=== PATIENT | female | born 1945 | race Caucasian/White ===

== ENCOUNTER → 2018-07-10 | Outpatient (CLI) | payer MEDICARE, OTHER | END | disposition home or self-care (01) | LOC: RAH 09:42 | PROVIDERS: ATTEND Internal Medicine | DX: K21.9 Gastro-esophageal reflux disease without esophagitis (principal); K44.9 Diaphragmatic hernia without obstruction or gangrene; K31.89 Other diseases of stomach and duodenum | CPT/HCPCS: 74240 ==

== ENCOUNTER → 2024-09-30 | Outpatient (CLI) | payer OTHER ==
--- NOTE | 2024-09-30 10:23 | HMCIMG ---
FINDINGS: There are no comparison exams. Routine upper GI exam was performed. The patient was given effervescent crystals in order to distend the esophagus and stomach. The patient swallowed barium and multiple images of the esophagus and stomach were obtained in various projections. During swallowing of barium, aspiration of a significant amount of barium was noted into the trachea and down to the level of the main bronchi. Nevertheless, no complications ensued. The esophagus distends normally, without any persistent stricturing or narrowing. There is normal esophageal peristalsis and emptying. The gastroesophageal junction is preserved. There is no evidence of esophagitis. No mucosal abnormality seen. No gastroesophageal reflux was seen. No hiatal hernia was demonstrated. The stomach distends well. No mucosal abnormalities are seen to suggest ulcer or cancer. No gastritis is evident. There is no extravasation. There is no evidence of gastric outlet obstruction. The duodenum is normal in appearance. There is no evidence of inflammatory change to suggest peptic ulcer disease. IMPRESSION: No reflux. No hernia. Aspiration of contrast material, barium. Consider further evaluation with speech pathologist Modified barium swallow.
== END | disposition home or self-care (01) ==
LOC: RAH 07:53
PROVIDERS: ATTEND Internal Medicine Gastroenterology
DX: K22.89 Other specified disease of esophagus (principal); K31.89 Other diseases of stomach and duodenum; R93.3 Abnormal findings on diagnostic imaging of other parts of digestive tract; K44.9 Diaphragmatic hernia without obstruction or gangrene; R49.8 Other voice and resonance disorders; R12 Heartburn
CPT/HCPCS: 74240

== ENCOUNTER → 2024-10-07 | Outpatient (CLI) | payer OTHER ==
--- NOTE | 2024-10-07 14:57 | HMCIMG ---
PA AND LATERAL CHEST RADIOGRAPH INDICATION: Abnormal findings on diagnostic imaging of other parts of digestive tract COMPARISON: 07/12/2015 FINDINGS: Heart size is normal. Mild calcific plaque is present along the aortic arch high. The pulmonary vascularity and rachael appear normal. 1.5 cm right upper lobe nodule, and additional smaller nodular opacity projects over the right midlung, perhaps just artifact from overlap of osseous structures with normal underlying pulmonary vascularity. No significant pleural effusion noted. No pneumothorax detected. IMPRESSION: 1.5 cm right upper lobe nodule. Noncontrast CT imaging of the chest can be obtained for further evaluation.
== END | disposition home or self-care (01) ==
LOC: RAH 11:48
PROVIDERS: ATTEND Internal Medicine Gastroenterology
DX: R91.1 Solitary pulmonary nodule (principal); R93.3 Abnormal findings on diagnostic imaging of other parts of digestive tract
CPT/HCPCS: 71046

== ENCOUNTER → 2024-10-19 | Outpatient (CLI) | payer OTHER ==
--- NOTE | 2024-10-19 14:13 | HMCIMG ---
CT CHEST W/O CONTRAST HISTORY: Loss of voice COMPARISON: None TECHNIQUE: Multiple sequential axial images of the chest were obtained from the thoracic inlet through upper abdomen. Patient was not given contrast through intravenous route. FINDINGS: There are COPD changes. Interstitial fibrosis. There is soft tissue mass adjacent to the aortic arch/aortopulmonary window measuring 2.7 x 2.2 cm suspicious for neoplastic process. There is right mid lung mass peripherally measuring 16 x 17 mm. There are also 2 right apical soft tissue mass measuring 14 mm and 10 mm each. Findings are suspicious for neoplastic process. The nodular infiltrates are also seen. There are extensive blebs formation. Coronary artery calcifications are seen. Tiny pericardial effusion is seen. No evidence of pleural effusion is seen. Small hiatal hernia is seen. There is no evidence of pneumothorax. There are borderline in size mediastinal and hilar lymph nodes. The heart is not enlarged. Degenerative changes of the thoracolumbar spine are present. There is no evidence of adrenal nodule. Gallstone is seen in the contracted gallbladder. IMPRESSION: 1. COPD with interstitial fibrosis. Multiple bilateral lung masses as described above. There is borderline mediastinal adenopathy. CT was performed with one or more following dose reduction techniques: automated exposure control, adjustment of the mA and kv according to patient's size, or use of a iterative reconstruction technique.
== END | disposition home or self-care (01) ==
LOC: RAH 13:16
PROVIDERS: ATTEND Internal Medicine Gastroenterology
DX: J43.9 Emphysema, unspecified (principal); J84.10 Pulmonary fibrosis, unspecified; R91.8 Other nonspecific abnormal finding of lung field; J90 Pleural effusion, not elsewhere classified; I25.10 Atherosclerotic heart disease of native coronary artery without angina pectoris; K44.9 Diaphragmatic hernia without obstruction or gangrene; M47.815 Spondylosis without myelopathy or radiculopathy, thoracolumbar region; K80.21 Calculus of gallbladder without cholecystitis with obstruction; R93.89 Abnormal findings on diagnostic imaging of other specified body structures
CPT/HCPCS: 71250

== ENCOUNTER 2024-11-29 22:42 | Emergency (ER) | payer OTHER ==
[~2024-11-29] VITALS: Ht 162.6 cm; Wt 49.4 kg
[2024-11-29 23:11] VITALS: PULSE 108; RESP 28
--- NOTE | 2024-11-29 23:18 | ERN ---
General Chief Complaint: Shortness of Breath Stated Complaint: C/O SOB Time Seen by MD: 23:17 History of Present Illness Initial Comments 79-year-old female with history of COPD and pulmonary interstitial fibrosis and hypermetabolic lung masses in both right and left lungs with borderline mediastinal adenopathy comes in with increasing work of breathing and hypoxia. She wakes up every morning around 2:00 a.m. with thick mucus plugs that she has to work to expectorate. And today was worse than usual. Other concerns: Patient has dysphagia and barium swallow shows significant aspiration. Early satiety and weight loss Chronic constipation Hyperlipidemia Hypertension Diverticulosis Heartburn Hiatal hernia Gastritis Loss of her voice Allergies: Coded Allergies: iodine (Unverified Allergy, Unknown, 11/29/24) Past Medical History Past Medical History: COPD, GERD, Hypertension, Other Medical History Other: LUNG CA Past Surgical History: Other ROS Dictation Patient is also experiencing anorexia and loss of weight. Constitutional: (-) chills, (-) diaphoresis, (-) fever, (-) malaise, (-) weakness, (-) other documentation EENTM: (-) eye pain, (-) blurred vision, (-) tearing, (-) double vision, (-) ear pain, (-) ear discharge, (-) nose pain, (-) nose congestion, (-) throat pain, (-) Throat swelling, (-) mouth pain, (-) tooth pain, (-) mouth swelling, (-) other documentation Respiratory: (+) cough, (+) short of breath, (+) wheezing Cardiovascular: (-) chest pain, (-) edema, (-) palpitations, (-) syncope, (-) dyspnea on exertion, (-) other documentation Gastrointestinal/Abdominal: (-) nausea, (-) vomiting, (-) diarrhea, (-) abdominal pain, (-) abdominal distention, (-) constipation, (-) rectal bleeding, (-) dark stool/melena, (-) other documentation Musculoskeletal: (-) Neck pain, (-) back pain, (-) Flank Pain, (-) joint pain, (-) joint swelling, (-) muscle pain, (-) muscle stiffness, (-) gout, (-) other documentation Skin: (-) laceration, (-) contusion, (-) abrasion, (-) abscess, (-) rash, (-) change in color, (-) change in hair, (-) change in nails, (-) diaphoresis, (-) dryness, (-) other documentation Neuro: (-) altered mental status, (-) headache, (-) syncope, (-) paralysis, (-) numbness, (-) seizure, (-) pre-existing deficit, (-) tremors, (-) weakness, (-) dizziness, (-) slurred speech, (-) vertigo, (-) other documentation Psych: (-) depression, (-) suicidal ideation, (-) anxiety, (-) emotional problems, (-) auditory hallucinations, (-) visual hallucinations Physical Exam General Appearance: (+) moderate distress Orientation: (+) alert, (+) oriented x 3 Head/Face Trauma: No Eye: bilateral eye normal inspection, bilateral eye PERRL, bilateral eye EOMI Ear, Nose, Throat: (+) hearing grossly normal, (+) moist mucous membraine, (+) normal pharynx Neck: (+) normal inspection, (+) supple, (+) full range of motion, (+) no JVD Respiratory: (+) chest non-tender, (+) lungs clear, (+) retractions Respiratory Comment Patient definitely using accessory muscles to breathe auscultation shows air movement and no wheezing Heart: (+) regular, (+) no gallop Vascular: (+) no edema, (+) normal peripheral pulse Gastrointestinal: (+) soft, (+) non-tender, (+) bowel sound present Results Laboratory and Microbiology Lab and Micro Result Laboratory Tests Test 11/30/24 01:09 White Blood Count 12.9 K/uL (4.8-10.8) H Red Blood Count 4.70 MIL/uL (4.00-5.50) Hemoglobin 13.7 g/dL (12.0-16.0) Hematocrit 42.6 % (36-48) Mean Corpuscular Volume 90.6 fL (79-99) Mean Corpuscular Hemoglobin 29.1 pg (27.0-33.0) Mean Corpuscular Hemoglobin Concent 32.2 g/dL (32.0-36.0) Red Cell Distribution Width 14.4 % (11.0-15.5) Platelet Count 363 K/uL (130-400) Mean Platelet Volume 11.7 fL (7.5-10.5) H Immature Granulocyte % (Auto) 0.5 % (0-1) Neutrophils (%) (Auto) 71.5 % (40.0-77.0) Lymphocytes (%) (Auto) 15.5 % (21.0-51.0) L Monocytes (%) (Auto) 11.1 % (3.0-13.0) Eosinophils (%) (Auto) 0.5 % (0.0-8.0) Basophils (%) (Auto) 0.9 % (0.0-5.0) Neutrophils # (Auto) 9.2 K/uL (1.8-7.7) H Lymphocytes # (Auto) 2.0 K/uL (1.0-4.8) Monocytes # (Auto) 1.4 K/uL (0.1-1.0) H Eosinophils # (Auto) 0.06 K/uL (0.00-0.70) Basophils # (Auto) 0.12 K/uL (0.00-0.20) Absolute Immature Granulocyte (auto 0.06 K/uL (0-1) Nucleated Red Blood Cells 0.0 % (0.0-0.19) Sodium Level 142 mmol/L (136-145) Potassium Level 2.7 mmol/L (3.5-5.1) *L Chloride Level 99 mmol/L (101-111) L Carbon Dioxide Level 33 mmol/L (21-32) H Blood Urea Nitrogen 12 mg/dL (7-18) Creatinine 0.6 mg/dL (0.5-1.0) Glomerular Filtration Rate Calc 91 mL/min (>90) Random Glucose 109 mg/dL (70-105) H Total Calcium 9.7 mg/dL (8.5-10.1) Iron Level 35 mcg/dL (50-170) L Total Iron Binding Capacity 336 mcg/dL (250-450) Percent Iron Saturation 10.4 % (22-44) L Total Bilirubin 0.6 mg/dL (0.2-1.0) Aspartate Amino Transf (AST/SGOT) 36 U/L (10-37) Alanine Aminotransferase (ALT/SGPT) 15 U/L (12-78) Alkaline Phosphatase 59 U/L (50-136) Total Protein 7.2 g/dL (6.0-8.3) Albumin 3.3 g/dL (3.5-5.0) L MDM Patient is experiencing exacerbation of her COPD. She is also losing weight from most likely lung cancer. Currently she only uses albuterol nebulizers in her home and she is finding them inadequate. I will give her IV steroid bolus and we will give her another nebulizer with steroids. She has already had multiple CT scans and chest x-rays and PET scans. I will get a chest x-ray but I do not feel the need for a CT scan right now. Patient may have a further complication of aspiration pneumonia. I will get a CBC and a chemistry panel as well. Chemistry panel showed a potassium of 2.6 so I am giving the patient small doses of oral potassium. The chest x-ray does not show any aspiration it does show a consolidation in the left upper lobe that this was present on a CT scan from a month ago and it is a mass not a pneumonia. Her CBC is also normal except for a slight elevation of her WBCs. Currently the patient is breathing more comfortably. We will give the patient one more nebulizer with steroids and then discharge her home with home nebulizer steroid therapy. ED Course Orders Procedure Category Date Status Time Bipap Settings RT 11/29/24 Transmitted 23:01 Ipratropium/Albuterol PHA 11/29/24 Complete Neb (Duoneb) 23:30 Comprehensive LAB 11/30/24 Complete Metabolic Panel 01:01 Cbc With Differential LAB 11/30/24 Complete 01:01 Methylprednisolone PHA 11/30/24 Complete Succ 40mg (Solu-Medro 01:30 Chest 1vw RAD 11/30/24 Taken 01:01 Budesonide 0.5 Mg/2 PHA 11/30/24 Complete Ml Inh (Pulmicort 0. 02:00 Potassium Chl 10% PHA 11/30/24 Complete Elixir 20meq (Kcl 10% 02:30 Iron Panel With %Sat LAB 11/30/24 Complete 02:31 Current Medications Medications (Trade) Dose Ordered Sig/Brock Route PRN Reason Start Time Stop Time Status Last Admin Dose Admin Albuterol (DUOneb) 1 UDVIAL ONCE ONCE IH 11/29/24 23:30 11/29/24 23:31 DC 11/29/24 23:36 Budesonide (Pulmicort 0.5 Mg/2ml) 0.5 mg ONCE ONCE IH 11/30/24 02:00 11/30/24 02:01 DC 11/30/24 02:55 Methylprednisolone Sodium Succinate (Solu-medROL 40MG) 40 mg ONCE ONCE IVP 11/30/24 01:30 11/30/24 01:31 DC 11/30/24 01:44 Potassium Chloride (KCl 10% Elixir 20meq/15ml) 20 meq ONCE ONCE PO 11/30/24 02:30 11/30/24 02:31 DC 11/30/24 02:36 Vital Signs Date Time Temp Pulse Resp B/P (MAP) Pulse Ox O2 Delivery O2 Flow Rate FiO2 11/30/24 02:55 99 20 11/30/24 02:21 94 19 142/60 93 Room Air* 0 21 11/29/24 23:45 112 33 32 11/29/24 23:44 100 20 107/54 98 Nasal Cannula* 2 28 11/29/24 23:11 108 28 11/29/24 22:45 97.5 111 20 146/78 94 Room Air DX & DISP Disposition: Discharge Departure Impression: Primary Impression: COPD exacerbation Additional Impression: Lung cancer Condition: Stable Scripts Budesonide (Budesonide) 0.25 Mg/2 Ml Ampul.neb 1 VIAL NEB BID for 30 Days, #120 ML 0 Refills Prov: RAMY SLADE MD 11/30/24 Additional Instructions: Please return if you have a similar episode of extreme shortness of breath and needing to use accessory muscles to breathe. I have given you a prescription for steroid inhalers that should help stabilize your COPD. Please follow-up with your regular comb capper for further management of your worsening COPD. Referrals: COREY MACE MD (PCP) RAMY SLADE MD November 29, 2024 23:18
[2024-11-29] MEDS: IpraTROPium/alBUTERol SULFATE 3 ML SOLUTION IH ONE (23:36)
[2024-11-29 23:45] VITALS: PULSE 112; RESP 33; O2SAT 100
[2024-11-30 00:25] VITALS: PULSE 105; RESP 28; O2SAT 99
[2024-11-30 00:40] VITALS: PULSE 102; RESP 26; O2SAT 98
[2024-11-30 01:27] LABS: BASOPHILS # (AUTO) 0.12 K/uL (0.00-0.20); BASOPHILS % (AUTO) 0.9 % (0.0-5.0); EOSINOPHILS # (AUTO) 0.06 K/uL (0.00-0.70); EOSINOPHILS % (AUTO) 0.5 % (0.0-8.0); HEMATOCRIT 42.6 % (36-48); IMMATURE GRANULOCYTE ABSOLUTE 0.06 K/uL (0-1); LYMPHOCYTES % (AUTO) 15.5 % (21.0-51.0); MEAN CORPUSCULAR HEMOGLOBIN 29.1 pg (27.0-33.0); MEAN CORPUSCULAR HGB CONC 32.2 g/dL (32.0-36.0); MEAN CORPUSCULAR VOLUME 90.6 fL (79-99); MONOCYTES # (AUTO) 1.4 K/uL (0.1-1.0); MONOCYTES % (AUTO) 11.1 % (3.0-13.0); NEUTROPHILS # (AUTO) 9.2 K/uL (1.8-7.7); NEUTROPHILS % (AUTO) 71.5 % (40.0-77.0); PLATELET COUNT (AUTO) 363 K/uL (130-400); RED CELL DISTRIBUTION WIDTH 14.4 % (11.0-15.5); WHITE BLOOD COUNT (AUTO) 12.9 K/uL (4.8-10.8)
[2024-11-30] MEDS: Solu-medROL 40MG VIAL IVP ONE (01:44)
[2024-11-30 01:50] LABS: ALBUMIN 3.3 g/dL (3.5-5.0); BILIRUBIN,TOTAL 0.6 mg/dL (0.2-1.0); CREATININE 0.6 mg/dL (0.5-1.0); TOTAL PROTEIN, SERUM 7.2 g/dL (6.0-8.3)
[2024-11-30 01:57] LABS: POTASSIUM 2.7 mmol/L (3.5-5.1)
[2024-11-30] MEDS: PoTASSium chl 10% ELIXIR 20MEQ 20 MEQ/15 ML UDCUP PO ONE (02:36)
[2024-11-30 02:45] LABS: % IRON SATURATION 10.4 % (22-44)
[2024-11-30 02:55] VITALS: PULSE 99; RESP 20
[2024-11-30] MEDS: BUDESONIDE 0.5 MG/2 ML INH IH ONE (02:55)
[2024-11-30] MEDS ORDERED: BUDE0.255 NEB (03:19)
[2024-11-30 04:21] VITALS: BP 128/65; PULSE 95; RESP 18; TEMP 98.4; O2SAT 95
--- NOTE | 2024-11-30 09:21 | HMCIMG ---
CHEST 1VW HISTORY: Aspiration COMPARISON: None FINDINGS: A frontal projection of the chest was obtained. Left perihilar pulmonary infiltrates are seen. Prominent interstitial markings are seen. The heart is borderline enlarged. Degenerative changes are seen. Aortic calcifications are seen. IMPRESSION: 1. Left perihilar pulmonary infiltrates are seen. Prominent interstitial markings are seen.
== END 2024-11-30 04:22 | disposition home or self-care (01) ==
LOC: EDH 22:42
DX: J44.1 Chronic obstructive pulmonary disease with (acute) exacerbation (principal); C34.90 Malignant neoplasm of unspecified part of unspecified bronchus or lung; I10 Essential (primary) hypertension; K21.9 Gastro-esophageal reflux disease without esophagitis; Z79.51 Long term (current) use of inhaled steroids; Z88.8 Allergy status to other drugs, medicaments and biological substances; Z91.041 Radiographic dye allergy status
CPT/HCPCS: 99285; 83540; 83550; 80053; 85025; 36415; 94640; 94660 ×2; 96374; 71045; J2919